=== PATIENT | male | born 1960 | race Caucasian/White ===

== ENCOUNTER 2021-03-29 19:56 | Emergency (ER) | payer SELFPAY ==
[~2021-03-29 19:56] MED LIST: Amoxicillin/Clavulanate K 875-125 MG Tab ONE
--- NOTE | 2021-03-29 21:25 | EDM.PDOC ---
ED HPI GENERAL MEDICAL PROBLEM - General Chief Complaint: Respiratory Problem Stated Complaint: CONGESTION, FEVER, COUGH Time Seen by Provider: 03/29/21 20:35 Source of Information: Reports: Patient History Limitations: Reports: No Limitations - History of Present Illness INITIAL COMMENTS - FREE TEXT/NARRATIVE: 60-year-old male presents to the ED complaining of cough, fever, sinus pressure. Patient had an acute onset of sinus pressure with postnasal drip causing cough at approximately 3 AM yesterday. Patient has a long history of sinus problems including sinus surgery. Patient's son was seen by me for same earlier this week. Positive for. Pressure over the frontal sinuses, increased pain with bending over to tie his shoes, blurred vision after he took a pain medication, pleurisy chronic. Negative for: Negative for shortness of breath, syncope/near syncope, constipation/diarrhea, nausea/vomiting, difficulty swallowing, swollen painful joints, rash, or trauma. - Related Data Allergies Allergy/AdvReac Type Severity Reaction Status Date / Time No Known Allergies Allergy Verified 09/25/13 19:54 Home Meds: Home Meds Amitriptyline HCl 25 mg PO BEDTIME 09/25/13 [History] Lisinopril 5 mg PO DAILY 09/25/13 [History] Loratadine [Claritin] 10 mg PO DAILY 09/25/13 [History] Naproxen [Naprosyn] 500 mg PO BID PRN 09/25/13 [History] Amoxicillin/Clavulanate K [Augmentin 875-125 MG] 1 tab PO BID #30 tablet 03/29/21 [Rx] Past Medical History HEENT History: Reports: Sinusitis (Sinus surgeries) Musculoskeletal History: Reports: Other (See Below) (Multiple back surgeries fusions hardware) ED ROS GENERAL - Review of Systems Review Of Systems: Comprehensive ROS is negative, except as noted in HPI. ED EXAM, GENERAL - Physical Exam Exam: See Below Free Text/Narrative:: ABC intact. No apparent distress. No obvious trauma. Speaking in full sentences. Alert and oriented x3, GCS 456. Exam Limited By: No Limitations General Appearance: Alert, WD/WN, No Apparent Distress Eye Exam: Bilateral Eye: Corneal Abrasion (Minimal), EOMI, PERRL Ears: Normal External Exam, Normal Canal, Hearing Grossly Normal, Normal TMs Ear Exam: Bilateral Ear: Auricle Normal, Canal Normal, TM normal Nose: Normal Inspection, Normal Mucosa, No Blood, Clear Rhinorrhea Throat/Mouth: Normal Lips, Normal Teeth, Normal Gums, Normal Voice, No Airway Compromise, Inflammation (Minor from postnasal drip) Head: Atraumatic, Normocephalic Neck: Normal Inspection, Supple, Non-Tender. No: Lymphadenopathy (R), Lymphadenopathy (L) Respiratory/Chest: No Respiratory Distress, Lungs Clear, Normal Breath Sounds, No Accessory Muscle Use, Chest Non-Tender Cardiovascular: Normal Peripheral Pulses, Regular Rate, Rhythm, No Edema, No Gallop, No JVD, No Murmur, No Rub GI/Abdominal: Soft, Non-Tender, No Distention, No Mass (Male) Exam: Deferred Rectal (Males) Exam: Deferred Extremities: Normal Inspection, Normal Range of Motion, Non-Tender, No Pedal Edema, Normal Capillary Refill Neurological: Alert, Oriented, Normal Cognition, Normal Gait Psychiatric: Normal Affect, Normal Mood Skin Exam: Warm, Dry, Intact, Normal Color, No Rash Lymphatic: No Adenopathy Course - Orders/Labs/Meds Labs: Laboratory Tests 03/29/21 Range/Units 20:19 SARS CoV-2 RNA Rapid THEA Negative Departure - Departure Time of Disposition: 21:05 Disposition: Home, Self-Care 01 Condition: Good Clinical Impression: Acute sinusitis Qualifiers: Sinusitis location: frontal Recurrence: recurrent Qualified Code(s): J01.11 - Acute recurrent frontal sinusitis - Discharge Information *PRESCRIPTION DRUG MONITORING PROGRAM REVIEWED*: No *COPY OF PRESCRIPTION DRUG MONITORING REPORT IN PATIENT CHRIS: No Prescriptions: Amoxicillin/Clavulanate K [Augmentin 875-125 MG] 1 tab PO BID #30 tablet Instructions: Sinusitis, Adult, [id number] Forms: ED Department Discharge Additional Instructions: Follow up as discussed - Assessment/Plan Assessment:: 60-year-old male presents to the ED for cough, fever, sinus pressure. Patient's presentation is consistent with acute sinusitis with postnasal drip causing irritation to the hypopharynx. Conditions considered: COVID-19, viral upper respiratory infection, peritonsillar abscess, strep throat, retropharyngeal abscess, migraine, cluster headache. Plan: ABC, history, exam, Covid 19 negative, ambulatory prescription for Augmentin 875 mg twice daily for 10 days. -Patient and/or inside outside sales representative understood and agreed to treatment plan. -All questions were answered to the patient's satisfaction. -Patient is discharged in stable condition. Patient to return to the ED if symptoms increase, fever greater than 102 r efractory to Tylenol/NSAID, lethargy, weakness, difficulty breathing. Follow-up with primary care provider within 7 days.
== END 2021-03-29 21:15 | disposition home or self-care (01) ==
LOC: LB.ED 19:56
DX: J01.11 Acute recurrent frontal sinusitis (principal); Z79.899 Other long term (current) drug therapy; Z20.822 Contact with and (suspected) exposure to COVID-19
CPT/HCPCS: 99283; A9270-GY; U0002

== ENCOUNTER 2021-10-03 12:52 | Emergency (ER) | payer MEDICAID ==
[2021-10-03] MEDS ORDERED: Lidocaine 1% 5 ML VIAL INJECT ONE (13:52)
== END 2021-10-03 13:54 | disposition home or self-care (01) ==
LOC: LB.ED 12:52
DX: S63.253A Unspecified dislocation of left middle finger, initial encounter (principal); Z79.899 Other long term (current) drug therapy; Z86.16 Personal history of COVID-19; W08.XXXA Fall from other furniture, initial encounter
CPT/HCPCS: 26770; 73120-LT; 99283-25

== ENCOUNTER 2023-07-07 09:01 | Emergency (ER) | payer OTHER ==
[2023-07-07 09:47] LABS: BASOPHILS ABSOLUTE AUTO 0.03 K/uL (0.02-0.10); BASOPHILS PERCENT AUTO 0.4 % (0.0-0.5); EOSINOPHILS PERCENT AUTO 1.2 % (1.0-5.0); HEMATOCRIT 48.2 % (40.0-54.0); LYMPHOCYTES ABSOLUTE AUTO 2.06 K/uL (1.50-4.00); LYMPHOCYTES PERCENT AUTO 25.6 % (20.0-40.0); MEAN CORPUSCULAR HGB CONC 33.2 g/dL (31.0-35.0); MEAN CORPUSCULAR VOLUME 90 fL (76-96); MEAN PLATELET VOLUME 9.1 fL (6.0-10.0); MONOCYTES ABSOLUTE AUTO 0.69 K/uL (0.20-0.80); MONOCYTES PERCENT AUTO 8.6 % (3.0-10.0); NEUTROPHILS ABSOLUTE AUTO 5.17 K/uL (2.00-7.50); NEUTROPHILS PERCENT AUTO 64.2 % (45.0-70.0); PLATELET COUNT,PLT 265 K/uL (150-400); RED BLOOD CELL COUNT 5.34 M/uL (4.50-6.50); RED CELL DISTRIBUTION WIDTH 13.2 % (11.0-16.0); WHITE BLOOD CELL COUNT,WBC 8.1 K/uL (4.0-11.0)
[2023-07-07 10:09] LABS: A/G RATIO 1.1 (0.8-2.0); ALBUMIN 3.9 g/dL (3.4-5.0); BILIRUBIN TOTAL 0.3 mg/dL (0.0-1.0); BUN/CREATININE RATIO 14.2 (6-25); CALCIUM 9.2 mg/dL (8.5-10.1); CARBON DIOXIDE,CO2 28.1 mmol/L (21.0-32.0); CREATININE 1.06 mg/dL (0.70-1.30); EST CRCL DRUG DOSING (CG) 58.95 mL/min; POTASSIUM,K 4.1 mmol/L (3.5-5.1); PROTEIN TOTAL,TP 7.6 g/dL (6.4-8.2)
== END 2023-07-07 10:35 | disposition home or self-care (01) ==
LOC: LB.ED 09:01
DX: S06.0X0A Concussion without loss of consciousness, initial encounter (principal); E78.00 Pure hypercholesterolemia, unspecified; I10 Essential (primary) hypertension; Z88.8 Allergy status to other drugs, medicaments and biological substances; Z79.82 Long term (current) use of aspirin; Z79.899 Other long term (current) drug therapy; Z86.19 Personal history of other infectious and parasitic diseases; Z86.16 Personal history of COVID-19; W00.0XXA Fall on same level due to ice and snow, initial encounter
CPT/HCPCS: 36415; 70450; 80053; 85025; 99283; 99284

== ENCOUNTER 2023-09-24 11:19 | Emergency (ER) | payer OTHER ==
[2023-09-24] MEDS ORDERED: Ketorolac 30 MG/ML SDV ONE (11:27)
[2023-09-24] MEDS: Ketorolac 30 MG/ML SDV IM ONE (11:33)
[2023-09-24 12:04] LABS: APPEARANCE,URINE CLEAR (CLEAR); BILIRUBIN,URINE NEGATIVE (NEGATIVE); COLOR,URINE YELLOW; GLUCOSE,URINE NEGATIVE (NEGATIVE); KETONES,URINE NEGATIVE (NEGATIVE); LEUKOCYTE ESTERASE,URINE NEGATIVE (NEGATIVE); NITRITE,URINE NEGATIVE (NEGATIVE); OCCULT BLOOD,URINE NEGATIVE (NEGATIVE); PROTEIN,URINE NEGATIVE (NEGATIVE); UROBILINOGEN,URINE 0.2 E.U./dL (0.2-1.0)
== END 2023-09-24 12:12 | disposition home or self-care (01) ==
LOC: LB.ED 11:19
DX: G89.29 Other chronic pain (principal); M54.50 Low back pain, unspecified; Z86.16 Personal history of COVID-19; Z88.8 Allergy status to other drugs, medicaments and biological substances; Z79.899 Other long term (current) drug therapy
CPT/HCPCS: 81003; 96372; 99283; J1885

== ENCOUNTER 2023-10-06 16:52 | Emergency (ER) | payer OTHER ==
[2023-10-06 17:13] LABS: HEMATOCRIT 44.9 % (40.0-54.0); MEAN CORPUSCULAR HEMOGLOBIN 30.4 pg (27.0-32.0); MEAN CORPUSCULAR HGB CONC 33.4 g/dL (31.0-35.0); RED BLOOD CELL COUNT 4.94 M/uL (4.50-6.50); RED CELL DISTRIBUTION WIDTH 13.7 % (11.0-16.0); WHITE BLOOD CELL COUNT,WBC 9.1 K/uL (4.0-11.0)
[2023-10-06] MEDS: Morphine 4 MG/ML VIAL IVPUSH ONE (17:13)
[2023-10-06] MEDS: Morphine 4 MG/ML VIAL ONE (17:33)
[2023-10-06] MEDS: Ketorolac 30 MG/ML SDV IVPUSH ONE (17:53)
[2023-10-06] MEDS: Sodium Chloride 0.9% 1,000 ML IV SCH (17:53)
[2023-10-06] MEDS: Ketorolac 30 MG/ML SDV ONE (17:54)
[2023-10-06 18:20] LABS: APPEARANCE,URINE CLEAR (CLEAR); BILIRUBIN,URINE NEGATIVE (NEGATIVE); COLOR,URINE YELLOW; GLUCOSE,URINE NEGATIVE (NEGATIVE); KETONES,URINE NEGATIVE (NEGATIVE); LEUKOCYTE ESTERASE,URINE NEGATIVE (NEGATIVE); NITRITE,URINE NEGATIVE (NEGATIVE); OCCULT BLOOD,URINE NEGATIVE (NEGATIVE); PROTEIN,URINE NEGATIVE (NEGATIVE); UROBILINOGEN,URINE 0.2 E.U./dL (0.2-1.0)
[2023-10-06 18:22] LABS: ANION GAP 11.7 mmol/L (5.0-15.0); BUN/CREATININE RATIO 13.3 (6-25); CALCIUM 8.8 mg/dL (8.5-10.1); CARBON DIOXIDE,CO2 27.1 mmol/L (21.0-32.0); CREATININE 1.13 mg/dL (0.70-1.30); EST CRCL DRUG DOSING (CG) 55.3 mL/min; POTASSIUM,K 3.8 mmol/L (3.5-5.1)
[2023-10-06] MEDS: Orphenadrine 60 MG/2 ML Inj IV ONE (18:57)
[2023-10-06] MEDS ORDERED: Cyclobenzaprine 10 MG Tab ONE (19:00)
[2023-10-06] MEDS: Orphenadrine 60 MG/2 ML Inj ONE (19:15)
== END 2023-10-06 19:21 | disposition home or self-care (01) ==
LOC: LB.ED 16:52
DX: S39.012A Strain of muscle, fascia and tendon of lower back, initial encounter (principal); N23 Unspecified renal colic; I10 Essential (primary) hypertension; E78.00 Pure hypercholesterolemia, unspecified; Z88.8 Allergy status to other drugs, medicaments and biological substances; Z79.899 Other long term (current) drug therapy; X58.XXXA Exposure to other specified factors, initial encounter
CPT/HCPCS: 36415; 74176; 80048; 81003; 85027; 96361; 96374; 96375; 99284; A9270; J1885; J2270; J2360; J7030

== ENCOUNTER 2023-12-14 11:02 | Emergency (ER) | payer OTHER ==
[2023-12-14] MEDS: Ketorolac 30 MG/ML SDV IM ONE (11:32)
[2023-12-14] MEDS: Diazepam 10 MG Tab PO ONE (12:24)
[2023-12-14] MEDS: Orphenadrine 60 MG/2 ML Inj IM ONE (12:25)
[2023-12-16] MEDS: Orphenadrine 60 MG/2 ML Inj ONE (08:30)
[2023-12-16] MEDS: Diazepam 5 MG Tab ONE (08:30)
== END 2023-12-14 13:20 | disposition home or self-care (01) ==
LOC: LB.ED 11:02
DX: S46.911A Strain of unspecified muscle, fascia and tendon at shoulder and upper arm level, right arm, initial encounter (principal); I10 Essential (primary) hypertension; Z79.899 Other long term (current) drug therapy; X50.1XXA Overexertion from prolonged static or awkward postures, initial encounter
CPT/HCPCS: 73030; 96372; 99283; A9270; J1885; J2360

== ENCOUNTER 2023-12-20 16:27 | Emergency (ER) | payer OTHER | END 2023-12-20 17:13 | disposition home or self-care (01) | LOC: LB.ED 16:27 | DX: Z48.00 Encounter for change or removal of nonsurgical wound dressing (principal); I10 Essential (primary) hypertension; E78.00 Pure hypercholesterolemia, unspecified; Z96.82 Presence of neurostimulator; Z79.899 Other long term (current) drug therapy | CPT/HCPCS: 99282 ==

== ENCOUNTER 2024-01-01 16:20 | Emergency (ER) | payer OTHER ==
[2024-01-01 17:27] LABS: INFLUENZA A NAA NEGATIVE (NEGATIVE); INFLUENZA B NAA NEGATIVE (NEGATIVE); RESPIRATORY SYNCYTIAL VIR NAA NEGATIVE (NEGATIVE)
[2024-01-01 17:28] LABS: CORONAVIRUS COVID-19 NAA NEGATIVE (NEGATIVE)
[2024-01-01] MEDS: Albuterol/Ipratropium 3.0-0.5 MG/3 ML Neb Soln NEB ONE (17:40)
[2024-01-01] MEDS: Albuterol 0.083% 2.5 MG/3 ML Neb Soln NEB ONE (18:04)
[2024-01-01] MEDS: Acetaminophen/Codeine 300-30 MG Tab PO ONE (18:13)
[2024-01-01] MEDS: Acetaminophen/Codeine 300-30 MG Tab ONE (18:14)
[2024-01-01] MEDS ORDERED: Azithromycin 250 MG Tab ONE (18:30)
[2024-01-01] MEDS ORDERED: Albuterol 6.7 GM Inhaler INH ONE (18:30)
[2024-01-01] MEDS ORDERED: Acetaminophen/Codeine 300-30 MG Tab ONE (18:30)
== END 2024-01-01 18:40 | disposition home or self-care (01) ==
LOC: LB.ED 16:20
DX: J01.11 Acute recurrent frontal sinusitis (principal); J21.9 Acute bronchiolitis, unspecified; I10 Essential (primary) hypertension; E78.00 Pure hypercholesterolemia, unspecified; E66.9 Obesity, unspecified; Z68.31 Body mass index [BMI] 31.0-31.9, adult; Z79.899 Other long term (current) drug therapy
CPT/HCPCS: 0241U; 71045; 94640; 99284; A9270; J7620

== ENCOUNTER 2024-01-16 14:53 | Emergency (ER) | payer OTHER ==
[2024-01-16] MEDS: Bacitracin Oint 1 GM U/D Packet TOP ONE (15:55)
[2024-01-16] MEDS ORDERED: Acetaminophen/HYDROcodone 325-5 MG Tab ONE (16:00)
== END 2024-01-16 16:25 | disposition home or self-care (01) ==
LOC: LB.ED 14:53
DX: S62.102A Fracture of unspecified carpal bone, left wrist, initial encounter for closed fracture (principal); I10 Essential (primary) hypertension; E78.00 Pure hypercholesterolemia, unspecified; E66.9 Obesity, unspecified; Z87.891 Personal history of nicotine dependence; Z79.899 Other long term (current) drug therapy; W01.0XXA Fall on same level from slipping, tripping and stumbling without subsequent striking against object, initial encounter
CPT/HCPCS: 73110-50; 73562-LT; 99283; A9270-GY

== ENCOUNTER 2024-02-09 11:18 | Emergency (ER) | payer OTHER ==
[2024-02-09 11:47] VITALS: BP 142/82
[2024-02-09] MEDS: Acetaminophen/Codeine 300-30 MG Tab PO ONE (13:11)
[2024-02-09 14:24] VITALS: PULSE 99
[2024-02-10] MEDS: Acetaminophen/Codeine 300-30 MG Tab ONE (09:51)
== END 2024-02-09 13:55 | disposition home or self-care (01) ==
LOC: LB.ED 11:18
DX: S62.101A Fracture of unspecified carpal bone, right wrist, initial encounter for closed fracture (principal); E78.00 Pure hypercholesterolemia, unspecified; I10 Essential (primary) hypertension; E66.9 Obesity, unspecified; Z68.30 Body mass index [BMI] 30.0-30.9, adult; Z79.899 Other long term (current) drug therapy; W19.XXXA Unspecified fall, initial encounter
CPT/HCPCS: 29125; 73110-RT; 73200-RT; 99283; 99283-25; A9270-GY

== ENCOUNTER 2024-02-11 08:45 | Emergency (ER) | payer OTHER ==
[2024-02-11] MEDS: Ketorolac 30 MG/ML SDV IM ONE (09:09)
[2024-02-11] MEDS: HYDROmorphone 2 MG/ML Syringe SUBCUT SCH (09:44)
[2024-02-11] MEDS: HYDROmorphone 2 MG/ML Syringe ONE (14:46)
== END 2024-02-11 11:12 | disposition home or self-care (01) ==
LOC: LB.ED 08:45
DX: S52.91XD Unspecified fracture of right forearm, subsequent encounter for closed fracture with routine healing (principal); S61.101D Unspecified open wound of right thumb with damage to nail, subsequent encounter; E78.00 Pure hypercholesterolemia, unspecified; I10 Essential (primary) hypertension; E66.9 Obesity, unspecified; Z68.30 Body mass index [BMI] 30.0-30.9, adult; Z79.899 Other long term (current) drug therapy; X58.XXXD Exposure to other specified factors, subsequent encounter
CPT/HCPCS: 73110-RT; 96372; 99283; J1171; J1885

== ENCOUNTER 2024-04-05 11:05 | Emergency (ER) | payer OTHER | END 2024-04-05 11:42 | disposition home or self-care (01) | LOC: LB.ED 11:05 | DX: S51.011A Laceration without foreign body of right elbow, initial encounter (principal); I10 Essential (primary) hypertension; E78.00 Pure hypercholesterolemia, unspecified; E66.9 Obesity, unspecified; Z79.899 Other long term (current) drug therapy; Z68.30 Body mass index [BMI] 30.0-30.9, adult; W00.9XXA Unspecified fall due to ice and snow, initial encounter | CPT/HCPCS: 99283 ==

== ENCOUNTER 2024-05-13 18:09 | Emergency (ER) | payer BC, MEDICARE, OTHER ==
[2024-05-13] MEDS ORDERED: Sodium Chloride 0.9% 10 ML Syringe FLUSH PRN (18:55)
[2024-05-13] MEDS: Sodium Chloride 0.9% 1,000 ML IV SCH (18:55)
[2024-05-13] MEDS: Ondansetron 4 MG/2 ML SDV IVPUSH ONE (19:03)
[2024-05-13 19:04] LABS: HEMATOCRIT 46.9 % (40.0-54.0); HEMOGLOBIN 15.9 g/dL (13.0-18.0); MEAN CORPUSCULAR HEMOGLOBIN 30.5 pg (27.0-32.0); MEAN CORPUSCULAR HGB CONC 33.9 g/dL (31.0-35.0); MEAN PLATELET VOLUME 9.4 fL (6.0-10.0); RED BLOOD CELL COUNT 5.21 M/uL (4.50-6.50); RED CELL DISTRIBUTION WIDTH 13.2 % (11.0-16.0); WHITE BLOOD CELL COUNT,WBC 13.7 K/uL (4.0-11.0)
[2024-05-13 19:08] LABS: ANION GAP 13.4 mmol/L (5.0-15.0); BLOOD UREA NITROGEN,BUN 23 mg/dL (8-26); BUN/CREATININE RATIO 20.5 (6-25); CALCIUM 8.5 mg/dL (8.5-10.1); CARBON DIOXIDE,CO2 26.5 mmol/L (21.0-32.0); CHLORIDE,CL 103 mmol/L (98-107); CREATININE 1.12 mg/dL (0.70-1.30); ESTIMATED GFR 73 mL/min (>60); GLUCOSE RANDOM 112 mg/dL (74-100); POTASSIUM,K 3.9 mmol/L (3.5-5.1); SODIUM,NA 139 mmol/L (136-145)
[2024-05-13] MEDS: cefTRIAXone 2 GM in Sodium Chloride 0.9% 100 ML IV ONE (19:38)
[2024-05-13 19:41] LABS: INFLUENZA A NAA NEGATIVE (NEGATIVE); INFLUENZA B NAA NEGATIVE (NEGATIVE); RESPIRATORY SYNCYTIAL VIR NAA NEGATIVE (NEGATIVE)
[2024-05-13 19:47] LABS: CORONAVIRUS COVID-19 NAA NEGATIVE (NEGATIVE)
[2024-05-13] MEDS ORDERED: Amoxicillin/Clavulanate K 875-125 MG Tab ONE (20:00)
[2024-05-13] MEDS: Fluconazole 150 MG Tab PO ONE (20:19)
== END 2024-05-13 20:25 | disposition home or self-care (01) ==
LOC: LB.ED 18:09
DX: J01.11 Acute recurrent frontal sinusitis (principal); I10 Essential (primary) hypertension; E78.00 Pure hypercholesterolemia, unspecified; E66.9 Obesity, unspecified; Z79.899 Other long term (current) drug therapy; Z68.30 Body mass index [BMI] 30.0-30.9, adult
CPT/HCPCS: 0241U; 36415; 80048; 85027; 96361; 96365; 96375; 99284-25; A9270-GY; J0696; J2405; J7030

== ENCOUNTER 2024-10-23 18:15 | Emergency (ER) | payer MEDICARE ==
[2024-10-23] MEDS: Ondansetron 4 MG/2 ML SDV IVPUSH ONE (18:34)
[2024-10-23] MEDS ORDERED: Sodium Chloride 0.9% 10 ML Syringe FLUSH PRN (20:19)
[2024-10-23] MEDS: Ondansetron 4 MG/2 ML SDV ONE (20:52)
[2024-10-23] MEDS: Sodium Phosphate,Monobasic/Sodium Phosphate,Dibasic Enema 133 ML Bottle RECTAL ONE (20:55)
[2024-10-23] MEDS: Magnesium Hydroxide 400 MG/5 ML Susp 30 ML Cup PO ONE (22:46)
== END 2024-10-24 09:12 | disposition home or self-care (01) ==
LOC: LB.ED 18:15
DX: K59.00 Constipation, unspecified (principal); Z87.828 Personal history of other (healed) physical injury and trauma; I10 Essential (primary) hypertension; E78.00 Pure hypercholesterolemia, unspecified; E66.9 Obesity, unspecified; Z79.899 Other long term (current) drug therapy; Z68.28 Body mass index [BMI] 28.0-28.9, adult
CPT/HCPCS: 96374; 96375; 96376; 99283; A0425; A0428; A9270; J1171; J2405

== ENCOUNTER 2024-11-27 20:41 | Emergency (ER) | payer MEDICARE ==
[2024-11-27 21:10] VITALS: BP 162/92; PULSE 72
== END 2024-11-27 21:20 | disposition home or self-care (01) ==
LOC: LB.ED 20:41
DX: I10 Essential (primary) hypertension (principal); E78.00 Pure hypercholesterolemia, unspecified; E66.9 Obesity, unspecified; Z79.899 Other long term (current) drug therapy; Z79.84 Long term (current) use of oral hypoglycemic drugs; Z68.30 Body mass index [BMI] 30.0-30.9, adult
CPT/HCPCS: 99283; A9270-GY

== ENCOUNTER 2025-01-11 10:25 | Emergency (ER) | payer MEDICARE | END 2025-01-11 11:25 | disposition home or self-care (01) | LOC: LB.ED 10:25 | DX: Z46.4 Encounter for fitting and adjustment of orthodontic device (principal); Z98.1 Arthrodesis status; I10 Essential (primary) hypertension; E78.00 Pure hypercholesterolemia, unspecified; M19.90 Unspecified osteoarthritis, unspecified site; E66.9 Obesity, unspecified; Z79.84 Long term (current) use of oral hypoglycemic drugs; Z79.899 Other long term (current) drug therapy; Z87.891 Personal history of nicotine dependence | CPT/HCPCS: 99282 ==

== ENCOUNTER 2025-02-18 07:49 | Emergency (ER) | payer SELFPAY ==
[2025-02-18 09:21] LABS: BASOPHILS ABSOLUTE AUTO 0.02 K/uL (0.02-0.10); BASOPHILS PERCENT AUTO 0.3 % (0.0-0.5); EOSINOPHILS ABSOLUTE AUTO 0.12 K/uL (0.04-0.40); EOSINOPHILS PERCENT AUTO 2.0 % (1.0-5.0); LYMPHOCYTES ABSOLUTE AUTO 1.13 K/uL (1.50-4.00); LYMPHOCYTES PERCENT AUTO 18.7 % (20.0-40.0); MEAN PLATELET VOLUME 9.2 fL (6.0-10.0); MONOCYTES ABSOLUTE AUTO 0.67 K/uL (0.20-0.80); MONOCYTES PERCENT AUTO 11.1 % (3.0-10.0); NEUTROPHILS ABSOLUTE AUTO 4.11 K/uL (2.00-7.50); NEUTROPHILS PERCENT AUTO 67.9 % (45.0-70.0); PLATELET COUNT,PLT 243 K/uL (150-400); RED BLOOD CELL COUNT 4.63 M/uL (4.50-6.50); RED CELL DISTRIBUTION WIDTH 13.5 % (11.0-16.0); WHITE BLOOD CELL COUNT,WBC 6.1 K/uL (4.0-11.0)
[2025-02-18 09:36] LABS: A/G RATIO 1.0 (0.8-2.0); ALANINE AMINOTRANSFERASE,ALT 31.0 U/L (12-78); ASPARTATE AMNIOTRANSFERASE,AST 18.0 U/L (15-37); BILIRUBIN TOTAL 0.4 mg/dL (0.0-1.0); BLOOD UREA NITROGEN,BUN 15.0 mg/dL (8-26); CARBON DIOXIDE,CO2 27.9 mmol/L (21.0-32.0); CHLORIDE,CL 110.0 mmol/L (98-107); CREATININE 1.28 mg/dL (0.70-1.30); EST CRCL DRUG DOSING (CG) 47.53 mL/min; ESTIMATED GFR 62.0 mL/min (>60); GLUCOSE RANDOM 161.0 mg/dL (74-100); POTASSIUM,K 4.4 mmol/L (3.5-5.1); PROTEIN TOTAL,TP 6.5 g/dL (6.4-8.2); SODIUM,NA 146.0 mmol/L (136-145)
[2025-02-18 09:49] LABS: INFLUENZA A NAA NEGATIVE (NEGATIVE); INFLUENZA B NAA NEGATIVE (NEGATIVE); RESPIRATORY SYNCYTIAL VIR NAA NEGATIVE (NEGATIVE)
[2025-02-18 09:51] LABS: CORONAVIRUS COVID-19 NAA NEGATIVE (NEGATIVE)
[2025-02-18] MEDS ORDERED: Amoxicillin/Clavulanate K 875-125 MG Tab ONE (10:00)
== END 2025-02-18 10:30 | disposition home or self-care (01) ==
LOC: LB.ED 07:49
DX: J32.9 Chronic sinusitis, unspecified (principal); I10 Essential (primary) hypertension; E11.9 Type 2 diabetes mellitus without complications; Z79.899 Other long term (current) drug therapy; Z79.84 Long term (current) use of oral hypoglycemic drugs
CPT/HCPCS: 36415; 71046; 80053; 85025; 87637; 99284; A9270-GY